=== PATIENT | female | born 1985 | race Caucasian/White ===

== ENCOUNTER 2017-04-25 14:26 | Emergency (ER) | payer MEDICAID ==
[~2017-04-25] VITALS: Ht 175.3 cm; Wt 99.6 kg
[2017-04-25 15:20] VITALS: BP 133/91
--- NOTE | 2017-04-25 15:25 | NUR ---
PT AA&OX4 WITH EVEN AND STEADY GAIT; RR EVEN/UNLABORED; PT TO LOBBY AWAITING OPEN BED.
--- NOTE | 2017-04-25 20:07 | NUR ---
PT TAKEN TO BED 1
--- NOTE | 2017-04-25 20:20 | NUR ---
32F BIB FAMILY TO ED WITH C/O BL EAR PAIN, BODY ACHES, VOMITING, COUGH, COLD SYMPTOMS X 3 DAYS. AAO X4, AMBULATORY WITH STEADY GAIT. RESPIRATIONS ROOM AIR, EVEN AND UNLABORED, C/O NON PRODUCTIVE COUGH, BL LUNG CLEAR. VSS, ER MD MADE AWARE OF PT. STATUS.
--- NOTE | 2017-04-25 20:40 | NUR ---
Patient discharged with v/s stable. Written and verbal after care instructions given and explained. Patient alert, oriented and verbalized understanding of instructions. Ambulatory with steady gait. All questions addressed prior to discharge. ID band removed. Patient advised to follow up with PMD. Rx of , CODEINE/GAUIFENESIN 10/100MG/5MLMOTRIN 600 MG given. Patient educated on indication of medication including possible reaction and side effects. Opportunity to ask questions provided and answered.
[2017-04-25 21:00] VITALS: BP 121/86
== END 2017-04-25 20:40 | disposition home or self-care (01) ==
LOC: MED 14:26
DX: J06.9 Acute upper respiratory infection, unspecified (principal)
CPT/HCPCS: 36415; 87804; 99285